=== PATIENT | male | born 1975 | race African-American/Black ===

== ENCOUNTER 2020-06-01 17:01 | Emergency (ER) | payer OTHER ==
[~2020-06-01] VITALS: Ht 182.9 cm; Wt 108.9 kg
[~2020-06-01 17:01] MED LIST: AMLODIPINE BESY10 M2 PO; DULOXETINE HCL40 MG PO; FLO4 PO; FLONS; HORIZANT300 MG PO; IBU800 M2 PO; LIPI20 PO; LOSARTAN POTAS100 M1 PO; METHOCARBAMOL500 MG PO; MICROZIDE12.5 MG PO; PERCOCET1 TAB PO; PROAIR RES117 MCG/Ac INH; SODIUM BICARBO325 MG PO; WELLBUTRIN XL300 M1 PO; ZANAFLEX4 MG PO; ZOF4 PO
[2020-06-01 17:42] VITALS: Ht 182.9 cm; Wt 108.9 kg
[2020-06-01 18:47] VITALS: BP 140/91
== END 2020-06-01 18:47 | disposition home or self-care (01) ==
LOC: ED 17:01
DX: R31.9 Hematuria, unspecified (principal); Z87.442 Personal history of urinary calculi; I10 Essential (primary) hypertension; Z46.6 Encounter for fitting and adjustment of urinary device; Z88.0 Allergy status to penicillin; Z91.013 Allergy to seafood; Z88.6 Allergy status to analgesic agent; Z98.890 Other specified postprocedural states